=== PATIENT | female | born 1990 | race American Indian/Alaskan Native ===

== ENCOUNTER 2020-10-05 11:40 | Emergency (ER) | payer OTHER ==
[2020-10-05 11:47] VITALS: BP 135/92
[2020-10-05] MEDS ORDERED: ASPIRIN 325 MG TAB PO ONE (12:14)
[2020-10-05] MEDS ORDERED: ACETAMINOPHEN 500 MG TAB PO STA (12:22)
--- NOTE | 2020-10-05 12:29 | Emergency Department Report ---
ED Chest Pain HPI - General Chief Complaint: Chest Pain Stated Complaint: CHEST PAINS Time Seen by Provider: 10/05/20 12:21 Source: patient Mode of arrival: Ambulatory Limitations: No Limitations - History of Present Illness Initial Comments: 30-year-old female with no significant past medical history presents to the ER today with complaints of left-sided chest pain. Patient states that her chest pain started at 1/2 hours ago. She states that she was standing talking to her brother when the pain started. She states that has been constant in nature and seems to be worse when she takes deep breath. She denies any injury or strenuous activity to her chest. She denies any associated shortness of breath, nausea/vomiting, abdominal pain, cough, wheezing, fever or chills, calf pain or lower extremity swelling. She denies tobacco use or any illicit drug use. She does have a IUD Mirena which she has had in place for the past 5 years. She denies any other PE/ DVT risk factors. She denies any cardiac risk factors. MD Complaint: chest pain -: hour(s) (2) Severity scale (0 -10): 3 - Related Data Previous Rx's Medication Instructions Recorded Last Taken Type Ibuprofen [Motrin] 600 mg PO Q8H PRN #30 tablet 10/05/20 Unknown Rx Allergies Allergy/AdvReac Type Severity Reaction Status Date / Time iodine Allergy Anaphylaxis Verified 10/05/20 11:42 Heart Score - HEART Score History: Slightly suspicious EKG: Normal Age: < 45 Risk factors: No known risk factors Troponin: < normal limit HEART Score: 0 - EKG Read Time Time EKG Completed: 11:46 EKG Read Time: 11:51 ED Review of Systems ROS: Stated complaint: CHEST PAINS Other details as noted in HPI Comment: All other systems reviewed and negative Constitutional: denies: chills, fever Eyes: denies: eye pain, eye discharge, vision change ENT: denies: ear pain, throat pain Respiratory: denies: cough, shortness of breath, SOB with exertion, SOB at rest, wheezing Cardiovascular: chest pain Endocrine: no symptoms reported Gastrointestinal: denies: abdominal pain, nausea, diarrhea, constipation, hematemesis Genitourinary: denies: urgency, dysuria, frequency, hematuria, discharge, abnormal menses, dyspareunia Musculoskeletal: denies: back pain, joint swelling, arthralgia, myalgia Skin: denies: rash, lesions, change in color, change in hair/nails ED Past Medical Hx - Past Medical History Previous Medical History?: No - Surgical History Additional Surgical History: C SECTION - Medications Home Medications: Home Medications Medication Instructions Recorded Confirmed Last Taken Type Ibuprofen [Motrin] 600 mg PO Q8H PRN #30 tablet 10/05/20 Unknown Rx ED Physical Exam - General Limitations: No Limitations General appearance: alert, in no apparent distress - Head Head exam: Present: atraumatic, normocephalic, normal inspection - Eye Eye exam: Present: normal appearance, PERRL, EOMI Pupils: Present: normal accommodation - Neck Neck exam: Present: normal inspection, full ROM. Absent: meningismus - Respiratory Respiratory exam: Present: normal lung sounds bilaterally, chest wall tenderness (Mild left-sided chest wall tenderness, patient states that this does not reproduce the pain she feels like the pain is on the inside). Absent: respiratory distress, wheezes, rales, rhonchi - Cardiovascular Cardiovascular Exam: Present: regular rate, normal rhythm, normal heart sounds - GI/Abdominal GI/Abdominal exam: Present: soft. Absent: distended, tenderness, guarding, rebound - Extremities Exam Extremities exam: Present: normal inspection, full ROM. Absent: pedal edema, calf tenderness - Neurological Exam Neurological exam: Present: alert, oriented X3, CN II-XII intact, normal gait - Psychiatric Psychiatric exam: Present: normal affect, normal mood - Skin Skin exam: Present: intact ED Course Vital Signs 10/05/20 11:45 Temperature 98.8 F Pulse Rate 90 Respiratory 20 Rate Blood Pressure 135/92 O2 Sat by Pulse 98 Oximetry MARIO score - Mario Score Age > 65: (0) No Aspirin use within the Past 7 Days: (0) No 3 or more CAD Risk Factors: (0) No 2 or more Angina events in past 24 hrs: (0) No Known CAD with more than 50% Stenosis: (0) No Elevated Cardiac Markers: (0) No ST Deviation Greater than 0.5mm: (0) No MARIO Score: 0 ED Medical Decision Making - Lab Data Result diagrams: 10/05/20 12:22 10/05/20 12:22 - EKG Data EKG shows normal: sinus rhythm Rate: normal - EKG Data Interpretation: normal EKG - Radiology Data Radiology results: report reviewed Patient: MARIA DEL ROSARIO PEACE MR#: [id number] : 06/14/2004 Acct:[id number] Age/Sex: 16 / F ADM Date: 10/05/20 Loc: ED Attending Dr: Ordering Physician: ELVIA MALDONADO Date of Service: 10/05/20 Procedure(s): XR chest routine 2V Accession Number(s): [id number] cc: ELVIA MALDONADO Fluoro Time In Minutes: CHEST PA AND LATERAL VIEWS INDICATION: chest pain/covid. COMPARISON: None. FINDINGS: Support devices: None. Heart: Within normal limits. Lungs/Pleura: No acute pulmonary or pleural findings. IMPRESSION: 1. No acute findings. Signer Name: Yo Rich MD Signed: 10/05/2020 12:19 PM Workstation Name: [id number] Transcribed By: OLIVA Dictated By: Yo Rich MD Electronically Authenticated By: Yo Rich MD Signed Date/Time: 10/05/201218 DD/ 18 TD/TT: - Medical Decision Making All labs reviewed-CBC, and CMP unremarkable. Troponin is negative. D-dimer was within normal limits. EKG shows normal sinus rhythm with any acute ischemic changes, STEMI or significant dysrhythmias. Chest x-ray shows nothing acute. Discussed lab and imaging results with patient. Upon discharge patient admits that she has been doing a lot of strenuous work around the yard lately. Informed her pain could be related to inflammation in the chest wall or even the internal lining of the lung like pleurisy. At this time, her history, physical, current condition and work-up does not suggest acute [place], unstable angina, PE (PERC score 1), severe pneumonia, pneumothorax, or any other significant emergent conditions warranting further testing or admission at this time. Patient is not toxic, she is not ill-appearing and she is not in any acute pain or respiratory distress. She is neurologically intact with a normal gait. Her vital signs are stable. Patient expressed understanding of instructions and agree with plan. Patient was stable at time of discharge. Critical care attestation.: If time is entered above; I have spent that time in minutes in the direct care of this critically ill patient, excluding procedure time. ED Disposition Clinical Impression: Nonspecific chest pain, Pleurisy, Costochondritis, acute Disposition: DC-01 TO HOME OR SELFCARE Is pt being admited?: No Does the pt Need Aspirin: No Condition: Stable Instructions: Pleurisy, Costochondritis Additional Instructions: I recommend that you take the ibuprofen as prescribed. Follow-up closely with your primary care doctor. Return to the ER if your symptoms changes or worsens in any way. Prescriptions: Ibuprofen [Motrin] 600 mg PO Q8H PRN #30 tablet PRN Reason: Pain Referrals: [facility] [Provider Group] - 3-5 Days Forms: Work/School Release Form(ED) Time of Disposition: 13:59
--- NOTE | 2020-10-05 13:03 | XRay Report ---
CHEST 2 VIEWS INDICATION / CLINICAL INFORMATION: left sided chest pain. COMPARISON: None available. FINDINGS: SUPPORT DEVICES: None. HEART / MEDIASTINUM: No significant abnormality. LUNGS / PLEURA: No significant pulmonary or pleural abnormality. No pneumothorax. ADDITIONAL FINDINGS: No significant additional findings. IMPRESSION: 1. No acute findings. Signer Name: José Shannon MD Signed: 10/05/2020 12:58 PM Workstation Name: [id number]
[2020-10-05 13:11] LABS: Basophils % (Auto) 0.5 % (0.0-1.8); Eosinophils # (Auto) 0.1 K/mm3 (0.0-0.4); Eosinophils % (Auto) 1.4 % (0.0-4.3); Hematocrit 38.8 % (30.3-42.9); Hemoglobin 13.3 gm/dl (10.1-14.3); Lymphocytes # (Auto) 2.7 K/mm3 (1.2-5.4); Mean Corpuscular HGB Conc 34 % (30-34); Mean Corpuscular Volume 89 fl (79-97); Monocytes # (Auto) 0.3 K/mm3 (0.0-0.8); Monocytes % (Auto) 4.3 % (0.0-7.3); Platelet Count 238 K/mm3 (140-440); Red Blood Count 4.37 M/mm3 (3.65-5.03); Red Cell Distribution Width 12.3 % (13.2-15.2)
[2020-10-05 13:17] LABS: Alanine Aminotransferase 11 units/L (7-56); Albumin 4.6 g/dL (3.9-5); Blood Urea Nitrogen 7 mg/dL (7-17); Calcium 9.7 mg/dL (8.4-10.2); Hemolysis Index 6
[2020-10-05 13:38] LABS: BUN/Creatinine Ratio 10
--- NOTE | 2020-10-06 11:07 | Electrocardiograph Report ---
[facility] Test Date: 2020-10-05 Test Time: 11:46:53 Pat Name: MARIA EUGENIA ROMAN Department: Room: Gender: F Spindle Maker: ANGELINA : 1990 Requested By: ED DOC Order Number: [id number] Reading MD: Samuel Estrada Measurements Intervals [place] Rate: 91 P: 68 MO: 143 QRS: 84 QRSD: 83 T: 32 QT: 354 QTc: 436 Interpretive Statements Sinus rhythm Probable left atrial enlargement No previous ECG available for comparison Electronically Signed On 10-06-2020 11:07:05 EDT by Samuel Estrada
== END 2020-10-05 14:20 | disposition home or self-care (01) ==
LOC: ED 11:40
DX: M94.0 Chondrocostal junction syndrome [Tietze] (principal); R09.1 Pleurisy
CPT/HCPCS: 36415; 71046; 80053; 84484; 85025; 85379; 93005; 99283